=== PATIENT | male | born 1990 | race Caucasian/White ===

== ENCOUNTER → 2021-10-22 10:44 | Outpatient (BNVA) | payer OTHER, SELFPAY | PROVIDERS: PCP Physician Assistant; Visit Provider Internal Medicine Pulmonary Disease | DX: J45.40 Moderate persistent asthma, uncomplicated (principal); Z91.09 Other allergy status, other than to drugs and biological substances | CPT/HCPCS: 36415; 82306; 85025; 99202 ==

== ENCOUNTER 2021-10-22 11:13 | Outpatient (REF) | payer OTHER, SELFPAY ==
[2021-10-22 11:35] LABS: MANUAL DIFF FLAG NO
[2021-10-22 12:03] LABS: Basophils Percent Auto 0.6 % (0-2); Eosinophils Absolute Auto 0.4 X10*3/uL (0.0-0.4); Imm Gran Abs Auto 0.02 X10*3/uL (0.00-0.03); Imm Gran Pct Auto 0.3 % (0.0-0.4); Lymphocytes Absolute Auto 1.3 X10*3/uL (1.2-4.9); Lymphocytes Percent Auto 18.9 % (20-40); Mean Corpuscular Hemoglobin 29.7 pg (27.0-33.0); Mean Corpuscular Volume 87.2 fL (80.0-98.0); Mean Platelet Volume 9.9 fL (9.4-12.4); Monocytes Absolute Auto 0.4 X10*3/uL (0.1-1.2); Neutrophils Absolute Auto 4.8 x10*3/uL (2.0-8.3); Neutrophils Percent Auto 68.2 % (45-73); Platelet Count 308 X10*3/uL (160-400); Red Blood Count 5.39 X10*6/uL (4.60-5.80); Red Cell Distribution Width 11.9 % (11.0-16.0)
[2021-10-22 12:57] LABS: Vitamin D 25-OH Total 17.3 ng/mL (>30)
== END 2021-10-22 11:14 | disposition home or self-care (01) ==
LOC: HO.LAB 11:13
PROVIDERS: Nurse Practitioner Family; PCP Physician Assistant; Visit Provider Internal Medicine Pulmonary Disease
DX: J45.909 Unspecified asthma, uncomplicated (principal); Z91.09 Other allergy status, other than to drugs and biological substances
CPT/HCPCS: 36415; 82306; 82785; 85025; 86003

== ENCOUNTER 2021-11-19 09:56 | Outpatient (REF) | payer OTHER, SELFPAY ==
--- NOTE | 2021-11-19 10:54 | PFT_ITS ---
FLOWS: FEV1 88% of predicted at 3.51 L. FVC 95% of predicted at 4.58 L. FEV1 to FVC ratio of 0.77. Positive bronchodilator response. LUNG VOLUMES: Total lung capacity 102% of predicted at 6.23 L. Residual volume 162% of predicted at 2.34 L. Slow vital capacity 83% of predicted at 3.89 L. Expiratory reserve volume 46% of predicted at 0.68 L. Diffusion capacity is normal. IMPRESSION: No obstructive or restrictive ventilatory defect. Positive bronchodilator response. Increased residual volume suggests air trapping. Decreased expiratory reserve volume suggests extrathoracic restriction likely secondary to abdominal obesity. MD ELIZABETH Boswell/MODL / [id number]
== END 2021-11-19 09:57 | disposition home or self-care (01) ==
LOC: HO.RESP 09:56
PROVIDERS: PCP Physician Assistant; Visit Provider Internal Medicine Pulmonary Disease
DX: J45.40 Moderate persistent asthma, uncomplicated (principal); R06.00 Dyspnea, unspecified
CPT/HCPCS: 94060; 94727; 94729

== ENCOUNTER → 2021-12-01 09:45 | Outpatient (BNVA) | payer OTHER, SELFPAY | PROVIDERS: PCP Physician Assistant; Visit Provider Internal Medicine Pulmonary Disease | DX: J45.40 Moderate persistent asthma, uncomplicated (principal); Z91.09 Other allergy status, other than to drugs and biological substances | CPT/HCPCS: 99212 ==

== ENCOUNTER 2022-10-27 14:17 | Outpatient (REF) | payer OTHER, SELFPAY ==
[2022-10-27 14:54] LABS: MANUAL DIFF FLAG NO
[2022-10-27 15:42] LABS: Basophils Percent Auto 0.5 % (0-2); Eosinophils Absolute Auto 0.7 X10*3/uL (0.0-0.4); Eosinophils Percent Auto 9.6 % (0-4); Hematocrit 46.7 % (42.0-52.0); Imm Gran Abs Auto 0.02 X10*3/uL (0.00-0.03); Imm Gran Pct Auto 0.3 % (0.0-0.4); Lymphocytes Absolute Auto 1.1 X10*3/uL (1.2-4.9); Lymphocytes Percent Auto 14.1 % (20-40); Mean Corpuscular HGB Conc 34.3 g/dl (31.0-36.0); Mean Corpuscular Hemoglobin 30.9 pg (27.0-33.0); Mean Corpuscular Volume 90.2 fL (80.0-98.0); Mean Platelet Volume 10.2 fL (9.4-12.4); Monocytes Absolute Auto 0.5 X10*3/uL (0.1-1.2); Monocytes Percent Auto 6.4 % (2-11); Neutrophils Absolute Auto 5.3 x10*3/uL (2.0-8.3); Neutrophils Percent Auto 69.1 % (45-73); Platelet Count 264 X10*3/uL (160-400); Red Blood Count 5.18 X10*6/uL (4.60-5.80); Red Cell Distribution Width 11.9 % (11.0-16.0); White Blood Count 7.6 X10*3/uL (4.8-10.8)
== END 2022-10-27 14:18 | disposition home or self-care (01) ==
LOC: HO.LAB 14:17
PROVIDERS: PCP Physician Assistant; Visit Provider Internal Medicine Pulmonary Disease
DX: J45.40 Moderate persistent asthma, uncomplicated (principal); Z91.09 Other allergy status, other than to drugs and biological substances
CPT/HCPCS: 36415; 82785; 85025; 86003; 99212

== ENCOUNTER 2022-10-27 14:17 | Outpatient (AMB) | payer OTHER, SELFPAY ==
--- NOTE | 2022-10-27 14:19 | A.OFFVIS_ITS ---
Intake Vital Signs 10/27/22 14:20 Height 5 ft 6 in Weight 194 lb BMI 31.3 BP 118/82 Pulse 80 Pulse Oximetry (%) 96 Intake Visit Reasons: Missed appointment Allergies apple [APPLE] Allergy (Severe, Verified 10/27/22 14:19) THROAT ITCHING nut - unspecified [nut] Allergy (Severe, Verified 10/27/22 14:19) ANAPHYLAXIS Fish Containing Products Allergy (Unknown, Verified 10/27/22 14:19) itchy throat HPI Missed appointment HPI Details 32-year-old gentleman, nonsmoker, followed for underlying moderate to severe persistent asthma and environmental allergies. Symptoms for previously controlled on high-dose Advair and albuterol MDI, however recently patient started to experience more symptoms, and also nocturnal symptoms. He is inter ested in immunologic therapy at this time. He does complain of an acute exacerbation symptomatic with wheezing and mild dyspnea. [facility] Medical History SONG positive Surgical History H/O surgical removal of keloid Family History Father Alive and well Mother Asthma Diabetes Brother Asthma Social History (Updated 08/19/22 @ 13:47 by Dru Mercer PA-C) Housing: Apartment Alcohol intake: current Alcohol intake frequency: holidays/special occasions only Patient Tobacco Use Status: Never used Tobacco e-Cigarette/Vaping Use: Never Used Second Hand Smoke Exposure: No service: No Current occupational status: employed Current occupation: [employer] Cognitive needs: No Hearing needs: No Vision needs: No Review of Systems Const Denies daytime sleepiness, Denies excessive sweating, Denies fatigue, Denies fever(s), Denies lethargy, Denies malaise, Denies night sweats, Denies snoring and Denies weight loss Eyes Denies blurry vision and Denies itchy eyes ENT Denies nasal congestion, Denies post nasal drip, Denies sinus pain, Denies sinus pressure and Denies other ( Thrush) Card Denies chest pain, Denies pedal edema, Denies dyspnea, Denies orthopnea and Denies paroxysmal nocturnal dyspnea Resp Denies cough, Denies hemoptysis, Denies excessive phlegm production, Denies dyspnea, Denies snoring and Reports wheezing GI Denies abdominal pain and Denies heartburn Musc Denies myalgias, Denies arthralgias and Denies joint swelling Skin/Breast Denies rash Neuro Denies memory loss and Denies seizure-like activity Psych Denies abnormal sleep pattern, Denies anxiety and Denies memory loss Endo Denies excessive sweating, Denies fatigue and Denies heat intolerance Hardik/Lymph Denies easy bruising Aller/Immun Denies itchy eyes, Denies seasonal rhinorrhea and Reports wheezing Physical Exam Vital Signs: Last Vital Signs Pulse 80 10/27/22 14:20 BP 118/82 10/27/22 14:20 Pulse Ox 96 10/27/22 14:20 BMI result Body Mass Index 31.3 Const General: no acute distress and alert Nutritional Appearance: not obese Orientation/consciousness: Other orientation findings ( oriented) HEENT Head: Yes atraumatic Eyes General: appearance normal, both eyes and all related structures Sclerae: sclerae normal EOM: EOMs intact bilaterally Neck Neck: Yes supple Lymphatic: no lymphadenopathy noted Resp Effort & Inspection: normal respiratory effort and no use of accessory muscles Auscultation: wheezes expiratory wheezes (Diffuse bilateral) Cardio Rate: regular rate Rhythm: regular rhythm Heart sounds: no gallops, no murmurs and no rubs Skin General skin exam: other ( warm) Extrem General: No clubbing, No cyanosis and No edema Assessment & Plan Assessment & Plan (1) Asthma: Code(s): J45.909 - Unspecified asthma, uncomplicated Qualifiers: Asthma severity: moderate Asthma persistence: persistent Asthma complication type: uncomplicated Qualified Code(s): J45.40 - Moderate persistent asthma, uncomplicated Plan: Underlying asthma, now suboptimally controlled on high-dose Advair and albuterol MDI. Will repeat immunologic studies and consider starting on Dupixent. Will treat acute exacerbation with a course of prednisone. (2) Environmental allergies: Code(s): Z91.09 - Other allergy status, other than to drugs and biological substances Plan: Suboptimal control on Singulair. Expect to improve on Dupixent. Orders: Orders Rast Allergen Today J45.40 - Moderate persistent asthma, uncomplicated Complete Blood Count Auto Diff Today J45.40 - Moderate persistent asthma, uncomplicated Medications: New prednisone 40 mg (2 x 20 mg) PO DAILY 14 tabs 0RF 7 days J45.40 - Moderate persistent asthma, uncomplicated Coding Level of Care Code Est Pt Level 4 (76585) Diagnoses Asthma J45.40 Asthma severity: moderate Asthma persistence: persistent Asthma complication type: uncomplicated Environmental allergies Z91.09
[2022-10-27 14:20] VITALS: BP 118/82; PULSE 80; O2SAT 96; BMI 31.3
== END 2022-10-27 14:35 | disposition home or self-care (01) ==
PROVIDERS: PCP Physician Assistant; Visit Provider Internal Medicine Pulmonary Disease
DX: J45.40 Moderate persistent asthma, uncomplicated (principal); Z91.09 Other allergy status, other than to drugs and biological substances
CPT/HCPCS: 99214

== ENCOUNTER 2022-11-10 09:01 | Outpatient (AMB) | payer OTHER, SELFPAY ==
[2022-11-10 09:20] VITALS: BP 118/78; PULSE 83; O2SAT 98
--- NOTE | 2022-11-10 09:20 | MHC.OFFVIS ---
Intake Vital Signs 11/10/22 09:20 Weight 87.5 kg BP 118/78 Blood Pressure Location Lt brachial Position Sitting Pulse 83 Pulse Source Pulse Oximeter Pulse Oximetry (%) 98 Oxygen Delivery Method Room Air Intake Visit Reasons: Dupixent teach Allergies apple [APPLE] Allergy (Severe, Verified 11/10/22 09:20) THROAT ITCHING nut - unspecified [nut] Allergy (Severe, Verified 11/10/22 09:20) ANAPHYLAXIS Fish Containing Products Allergy (Unknown, Verified 11/10/22 09:20) itchy throat Medication List - Last Reconciled 11/10/22 by Roslyn Ku LPN albuterol sulfate 90 mcg/actuation (Ventolin HFA) 1 inh inhalation QID 30 days cholecalciferol (vitamin D3) 25 mcg PO DAILY dupilumab (Dupixent) 300 mg (2 mL) subcut Q2W 28 days fexofenadine (Estephania Allergy) 180 mg PO DAILY fluticasone propion-salmeterol 230-21 mcg/actuation (Advair HFA) 2 puffs PO BID ketoconazole 2% 1 appl topical 3XW 8 weeks miscellaneous medical supply 1 ea miscellaneous DAILY montelukast (Singulair) 10 mg PO BEDTIME 90 days nebulizers (AeroEclipse II Nebulizer) As directed prednisone 40 mg (2 x 20 mg) PO DAILY 7 days triamcinolone acetonide 0.1% 1 appl topical DAILY HPI Dupixent teach HPI Details Reece is here for a Dupixent teach with his girlfriend Jada. Reece and Luisanaselena were educated on hand washing, injection preparation, administration, and disposal.?Jada was able to return demonstrate proper technique for hand washing, injection preparation, administration and disposal of needle and states she has no questions at this time. Medication Dupixent 300mg/2mL pre-filled pen (patient?s own meds) Loading dose of 600mg given by the Jada in 2 SQ injections; injection #1 L upper arm ;? injection #2 R upper arm? Lot# [id number] expires 06/02/2024. Patient aware his next injection is in 15 days. Nurse visit only.? PFSH Medical History SONG positive Surgical History H/O surgical removal of keloid Family History Father Alive and well Mother Asthma Diabetes Brother Asthma Social History (Updated 08/19/22 @ 13:47 by Dru Mercer PA-C) Housing: Apartment Alcohol intake: current Alcohol intake frequency: holidays/special occasions only Patient Tobacco Use Status: Never used Tobacco e-Cigarette/Vaping Use: Never Used Second Hand Smoke Exposure: No service: No Current occupational status: employed Current occupation: [employer] Cognitive needs: No Hearing needs: No Vision needs: No Assessment & Plan Assessment & Plan (1) Asthma: Code(s): J45.909 - Unspecified asthma, uncomplicated Qualifiers: Asthma severity: moderate Asthma persistence: persistent Asthma complication type: uncomplicated Qualified Code(s): J45.40 - Moderate persistent asthma, uncomplicated Coding Level of Care Code Established Pt Est Pt Level 1 (52158) Patient Type Established Diagnoses Asthma J45.40 Asthma severity: moderate Asthma persistence: persistent Asthma complication type: uncomplicated Comment NURSE VISIT ONLY
== END 2022-11-10 09:48 | disposition home or self-care (01) ==
PROVIDERS: PCP Physician Assistant; Visit Provider Internal Medicine Pulmonary Disease
DX: J45.40 Moderate persistent asthma, uncomplicated (principal)

== ENCOUNTER → 2022-11-10 09:01 | Outpatient (BNVA) | payer OTHER, SELFPAY | PROVIDERS: PCP Physician Assistant; Visit Provider Internal Medicine Pulmonary Disease | DX: J45.40 Moderate persistent asthma, uncomplicated (principal) | CPT/HCPCS: 99211 ==

== ENCOUNTER 2023-01-20 08:48 | Outpatient (AMB) | payer OTHER, SELFPAY ==
[2023-01-20 09:00] VITALS: BP 107/67; PULSE 73; O2SAT 96; BMI 32.0
--- NOTE | 2023-01-20 09:00 | MHC.OFFVIS ---
Intake Vital Signs 01/20/23 09:00 Height 5 ft 6 in Weight 198 lb 6.656 oz BMI 32.0 BP 107/67 Blood Pressure Location Rt brachial Position Sitting Pulse 73 Pulse Source Doppler Pulse Oximetry (%) 96 Oxygen Delivery Method Room Air Intake Visit Reasons: Missed appointment Allergies apple [APPLE] Allergy (Severe, Verified 01/20/23 09:02) THROAT ITCHING nut - unspecified [nut] Allergy (Severe, Verified 01/20/23 09:02) ANAPHYLAXIS Fish Containing Products Allergy (Unknown, Verified 01/20/23 09:02) itchy throat HPI Missed appointment HPI Details 32-year-old gentleman, nonsmoker, followed for underlying moderate to severe persistent asthma and environmental allergies. After the last office visit patient has been started on Dupixent with significant improvement in his symptom control. He continues to use Advair and albuterol MDI. He denies recent exacerbations. [facility] Medical History SONG positive Surgical History H/O surgical removal of keloid Family History Father Alive and well Mother Asthma Diabetes Brother Asthma Social History Housing: Apartment Alcohol intake: current Alcohol intake frequency: holidays/special occasions only Patient Tobacco Use Status: Never used Tobacco e-Cigarette/Vaping Use: Never Used Second Hand Smoke Exposure: No service: No Current occupational status: employed Current occupation: [employer] Cognitive needs: No Hearing needs: No Vision needs: No Review of Systems Const Denies daytime sleepiness, Denies excessive sweating, Denies fatigue, Denies fever(s), Denies lethargy, Denies malaise, Denies night sweats, Denies snoring and Denies weight loss Eyes Denies blurry vision and Denies itchy eyes ENT Denies nasal congestion, Denies post nasal drip, Denies sinus pain, Denies sinus pressure and Denies other ( Thrush) Card Denies chest pain, Denies pedal edema, Denies dyspnea, Denies orthopnea and Denies paroxysmal nocturnal dyspnea Resp Denies cough, Denies hemoptysis, Denies excessive phlegm production, Denies dyspnea, Denies snoring and Denies wheezing GI Denies abdominal pain and Denies heartburn Musc Denies myalgias, Denies arthralgias and Denies joint swelling Skin/Breast Denies rash Neuro Denies memory loss and Denies seizure-like activity Psych Denies abnormal sleep pattern, Denies anxiety and Denies memory loss Endo Denies excessive sweating, Denies fatigue and Denies heat intolerance Hardik/Lymph Denies easy bruising Aller/Immun Denies itchy eyes, Denies seasonal rhinorrhea and Denies wheezing Physical Exam Vital Signs: Last Vital Signs Pulse 73 01/20/23 09:00 BP 107/67 01/20/23 09:00 Pulse Ox 96 01/20/23 09:00 Oxygen Delivery Method Room Air 01/20/23 09:00 BMI result Body Mass Index 32.0 Const General: no acute distress and alert Nutritional Appearance: not obese Orientation/consciousness: Other orientation findings ( oriented) HEENT Head: Yes atraumatic Eyes General: appearance normal, both eyes and all related structures Sclerae: sclerae normal EOM: EOMs intact bilaterally Neck Neck: Yes supple Lymphatic: no lymphadenopathy noted Resp Effort & Inspection: normal respiratory effort and no use of accessory muscles Auscultation: clear to auscultation bilaterally Cardio Rate: regular rate Rhythm: regular rhythm Heart sounds: no gallops, no murmurs and no rubs Skin General skin exam: other ( warm) Extrem General: No clubbing, No cyanosis and No edema Assessment & Plan Assessment & Plan (1) Asthma: Code(s): J45.909 - Unspecified asthma, uncomplicated Qualifiers: Asthma severity: moderate Asthma persistence: persistent Asthma complication type: uncomplicated Qualified Code(s): J45.40 - Moderate persistent asthma, uncomplicated Plan: Well controlled on current regimen of Dupixent, Advair, and albuterol MDI. Continue current regimen. (2) Environmental allergies: Code(s): Z91.09 - Other allergy status, other than to drugs and biological substances Plan: Well controlled on current regimen of Dupixent and montelukast. Continue current regimen. Coding Level of Care Code Est Pt Level 4 (04800) Diagnoses Moderate persistent asthma without complication J45.40 Asthma severity: moderate Asthma persistence: persistent Asthma complication type: uncomplicated Environmental allergies Z91.09
== END 2023-01-20 09:20 | disposition home or self-care (01) ==
PROVIDERS: PCP Physician Assistant; Visit Provider Internal Medicine Pulmonary Disease
DX: J45.40 Moderate persistent asthma, uncomplicated (principal); Z91.09 Other allergy status, other than to drugs and biological substances
CPT/HCPCS: 99214

== ENCOUNTER → 2023-01-20 08:48 | Outpatient (BNVA) | payer OTHER, SELFPAY | PROVIDERS: PCP Physician Assistant; Visit Provider Internal Medicine Pulmonary Disease | DX: J45.40 Moderate persistent asthma, uncomplicated (principal); Z91.09 Other allergy status, other than to drugs and biological substances | CPT/HCPCS: 99212 ==

== ENCOUNTER 2023-04-06 13:38 | Emergency (ER) | payer OTHER, SELFPAY ==
--- NOTE | ~2023-04-06 | XR_ITS ---
EXAMINATION: XR CHEST CLINICAL INFORMATION: SOB COMPARISON: None available. TECHNIQUE: 2 views of the chest were obtained. FINDINGS: No significant abnormality is noted involving the heart, lungs, mediastinum, bony thorax or soft tissues. XR/XR chest 2V IMPRESSION: Unremarkable chest examination.
[2023-04-06 14:00] VITALS: BP 127/93; PULSE 77; RESP 18; TEMP 36.9; O2SAT 97; BMI 30.8
--- NOTE | 2023-04-06 14:01 | ED_ITS ---
HPI - Asthma General Chief Complaint: Upper Respiratory Symptoms Stated Complaint: ASTHMA Time Seen by Provider: 04/06/23 19:45 Source: patient and RN notes reviewed Mode of arrival: ambulatory Limitations: no limitations History of Present Illness HPI Narrative: This is a 77-phkb-dga-male, with a hx of asthma, presenting to the ER with a complaint of worsening asthma and cough since yesterday. patient reports that over the last week he has felt more tired, with body aches. He attributed this to his work. He denies any fevers, chills. he denies any chest pain, sore throat, ear pain, congestion, abdominal pain, nausea, vomiting or diarrhea. No sick contacts. He has been using his albuterol inhaler with minimal relief. No other complaints or concerns at this time. MD complaint: shortness of breath and wheezing Onset (ago): day(s) Severity: moderate Context: none known Associated symptoms: dry cough Asthma History: childhood onset Related Data Home Medications Medication Instructions Recorded Confirmed fexofenadine 180 mg tablet 180 mg PO DAILY 09/18/21 11/10/22 (Estephania Allergy) Previous Rx's Medication Instructions Recorded miscellaneous medical supply 1 ea miscellaneous DAILY #1 ea 09/18/21 cholecalciferol (vitamin D3) 25 25 mcg PO DAILY #90 tabs 10/23/21 mcg (1,000 unit) tablet nebulizers (AeroEclipse II #1 ea 08/19/22 Nebulizer) triamcinolone acetonide 0.1 % 1 appl topical DAILY #454 grams 10/26/22 topical ointment prednisone 20 mg tablet 40 mg (2 x 20 mg) PO DAILY 7 days 10/27/22 #14 tabs ketoconazole 2 % shampoo 1 appl topical 3XW 8 weeks #120 mL 12/19/22 dupilumab 300 mg/2 mL subcutaneous 300 mg (2 mL) subcut Q2W 28 days 02/02/23 pen injector (Dupixent) #4 mL albuterol sulfate 90 mcg/actuation 1 inh inhalation QID 30 days #8.5 02/18/23 aerosol inhaler (Ventolin HFA) grams montelukast 10 mg tablet 10 mg PO BEDTIME 90 days #90 tabs 02/18/23 (Singulair) fluticasone propionate 230 2 puff PO BID #12 ea 03/31/23 mcg-salmeterol 21 mcg/actuation HFA inhaler (Advair HFA) prednisone 10 mg tablet 10 mg PO DIRECTED 6 days #12 04/06/23 tabs Allergies Allergy/AdvReac Type Severity Reaction Status Date / Time apple [APPLE] Allergy Severe THROAT Verified 01/20/23 09:02 ITCHING nut - unspecified [nut] Allergy Severe ANAPHYLAXIS Verified 01/20/23 09:02 Fish Containing Products Allergy Unknown itchy Verified 01/20/23 09:02 throat Review of Systems Review of Systems: Yes all other systems are reviewed and are negative Constitutional: Constitutional: Reports as per [facility] Past Medical History Attestation statement: The following information was validated with the patient. Onset Date is defined in the Problem List Problems that require an onset date and time if occurred within 24 hrs of arrival to the ED Aortic Dissection and Rupture; Neurologic impairment; Cardiopulmonary Arrest; Endotracheal Intubation; Insertion or Replacement of Mechanical Circulatory Assist Device Medical History SONG positive Surgical History H/O surgical removal of keloid Family History Family History Father Alive and well Mother Asthma Diabetes Brother Asthma Social History Social History Housing: Apartment Alcohol intake: current Alcohol intake frequency: holidays/special occasions only Patient Tobacco Use Status: Never used Tobacco e-Cigarette/Vaping Use: Never Used Second Hand Smoke Exposure: No Advance Directives: No Advance Directives Information Provided: No service: No Current occupational status: employed Current occupation: [employer] Cognitive needs: No Hearing needs: No Vision needs: No Physical Exam Vital Signs: Vital Signs: Last Vital Signs Temp 98.5 F 04/06/23 14:00 Pulse 77 04/06/23 19:44 Resp 18 04/06/23 19:44 BP 127/93 H 04/06/23 14:00 Pulse Ox 97 04/06/23 14:00 O2 Del Method Room Air 04/06/23 14:00 BMI result Body Mass Index 30.8 Const: General: cooperative, comfortable and no acute distress [place] ation/consciousness: patient oriented x3 Limitations: no limitations HEENT: Head: Yes normal to inspection, Yes normocephalic and Yes atraumatic Ears: hearing grossly normal bilaterally and TM's normal bilaterally General nose exam: Normal external nose present Face and sinus: Yes normal facial exam Mouth: Normal oral and palatal mucosa present, oropharynx normal and moist mucous membranes Throat: Yes posterior oropharynx normal, Yes tonsils normal and Yes uvula midline Eyes: General: appearance normal, both eyes and all related structures Eyelids: Yes eyelids normal Conjunctivae: conjunctivae normal Sclerae: sclerae normal Pupils: Equal, round and reactive pupils present EOM: EOMs intact bilaterally Neck: Neck: Yes normal visual inspection, Yes full ROM and Yes no lymphadenopathy Lymphatic: no lymphadenopathy noted Chest: Chest palpation & inspection: normal inspection of the chest Resp: Other: Coarse inspiratory and expiratory wheezes noted throughout all lung miller. Effort & Inspection: normal respiratory effort and able to speak in complete sentences Cardio: Rate: regular rate Rhythm: regular rhythm Heart sounds: S1 normal heart sound present and S2 normal heart sound present GI: Inspection: Yes normal to inspection Skin: General skin exam: no rashes or lesions noted Trauma: no lacerations or abrasions Wounds: no wounds Neuro: General: patient oriented x3 and moves all extremities Cranial nerves: Yes Equal, round and reactive pupils present Extrem: General: Yes normal to inspection Right upper extremity: normal to inspection Left upper extremity: normal to inspection Right lower extremity: normal to inspection Left lower extremity: normal to inspection Course Reevaluation(s) Reevaluation #1: patient tested positive for COVID, chest x-ray negative. Patient medicated with prednisone 50 mg by mouth, and will be discharged on course of steroids for the next 4 days. E.d. bronch protocol initiated given inspiratory and expiratory wheezes throughout all lung miller. Oxygen saturation normal, patient remains to be afebrile Time: 19:36 Reevaluation #2: patient improved after receiving updraft and prednisone. Given return precautions. Patient understands and agrees with plan. Patient stable for discharge. Time: 20:16 Medications Administered Discontinued Medications Generic Name Dose Route Start Last Admin Trade Name Freq PRN Reason Stop Dose Admin Albuterol Sulfate 8 puff 04/06/23 19:39 04/06/23 19:42 Albuterol Sulfate 90 Mcg 8 Gm Inhaler INHALE 04/06/23 19:40 8 puff ONCE ONE Administration Prednisone 50 mg 04/06/23 19:28 04/06/23 20:14 Prednisone 10 Mg Tablet PO 04/06/23 19:29 50 mg ONCE ONE Administration Medical Decision Making Medical Decision Making [facility] Narrative: This is a 40-qbze-roq-male, with a hx of asthma, presenting to the ER with a complaint of worsening asthma and cough since yesterday. Coarse inspiratory and expiratory wheezes noted throughout all lung miller. Oxygen saturation 97% on room air. He is in no acute respiratory distress. Likely would benefit from updrafts plus or minus steroids. Differential Diagnosis Differential Diagnoses: The differential diagnosis associated with the presenta tion includes Admission/Observation Consideration of admission/observation: Escalation of care including admission/observation considered Lab Data [facility] Lab Attestation statement: I reviewed the patient's lab results. Labs: Lab Results 04/06/23 Range/Units 17:38 Influenza Type A (PCR) NEGATIVE (Negative) Influenza Type B (PCR) NEGATIVE (Negative) RSV RNA Qual (PCR) NEGATIVE (Negative) SARS-CoV-2 RNA (RT-PCR) POSITIVE A (Negative) Radiology Impression Discussion of test interpretation with radiology: I have reviewed the radiologist's reading. External Record Review External record reviewed: Inpatient record, Office record, Outpatient record, Prior outpatient labs, Prior outpatient radiology, Primary care record and Outside ED record Discharge Plan Discharge Clinical Impression: COVID-19 Patient Disposition: Home, Self-Care Instructions: COVID-19 (Coronavirus Disease 2019) (ED) Additional Instructions: You tested positive for COVID-19 today. Your chest x-ray does not show pneumonia. Continue using her at home inhaler as prescribed. Take Tylenol and ibuprofen as directed. Drink plenty of fluids get plenty of rest COVID-19 stands for coronavirus disease 2019. It is caused by a virus called SARS-CoV-2. The virus first appeared in late 2019 and quickly spread around the world. Many people only have mild cold symptoms. Some people have digestive problems, like nausea or diarrhea. There have also been some reports of rashes or other skin symptoms. For most people, symptoms get better within a few days to weeks.? Some people with COVID-19 continue to have some symptoms for weeks or months.? Drink plenty of fluids and get plenty of rest. Take Tylenol and Motrin as needed for symptoms. If any new or worsening symptoms occur including but not limited to chest pain or shortness breath, please return for re-evaluation. What should I do if I have symptoms or test positive?If you have a fever, cough, cold symptoms, or other symptoms of COVID-19, get tested. You can use the flowchart to figure out when to test and what to do based on the results If you?test positive: ? Self-isolate for at least 5 days, even if you feel well. Self-isolation means staying apart from other people, even the people you live with. The 5 days should start the day?after?you first noticed symptoms or got a positive test result. If you have a weak immune system or if you still have a fever, you might need to self-isolate for longer than 5 days. ?After self-isolating for 5 days, wear a mask around all other people for at least 5 more days. Some people use antigen tests to decide how long to keep wearing the mask. If you do this, you can stop wearing a mask once you test negative on 2 antigen tests done at least 2 days apart. ?If your symptoms are severe, or if you are at risk for severe illness,?call ?your doctor or nurse. They can tell you if you need to be seen. Depending on your situation, they might suggest treatment. Prescriptions: No Action cholecalciferol (vitamin D3) 25 mcg (1,000 unit) tablet 25 mcg PO DAILY Qty: 90 0RF triamcinolone acetonide 0.1 % ointment 1 appl topical DAILY Qty: 454 2RF ketoconazole 2 % shampoo 1 appl topical 3XW 56 Days Qty: 120 1RF Dupixent Pen 300 mg/2 mL pen injector 300 mg subcut Q2W 28 Days Qty: 4 12RF Rx Instructions: Initial dose 600 mg, then 300 mg subcutaneously q.2 weeks. montelukast [Singulair] 10 mg tablet 10 mg PO BEDTIME 90 Days Qty: 90 1RF albuterol sulfate [Ventolin HFA] 90 mcg/actuation HFA aerosol inhaler 1 inh inhalation QID 30 Days Qty: 8.5 3RF Advair HFA 230-21 mcg/actuation HFA aerosol inhaler 2 puff PO BID Qty: 12 0RF prednisone 10 mg tablet 10 mg PO DIRECTED 6 Days Qty: 12 0RF Rx Instructions: Take 3 tablets x2 days, 2 tablets x2 days, 1 tablet x2 days fexofenadine [Estephania Allergy] 180 mg tablet 180 mg PO DAILY miscellaneous medical supply Misc 1 ea miscellaneous DAILY Qty: 1 0RF Rx Instructions: nebulizer machine with tubing (DME) nebulizers [AeroEclipse II Nebulizer] Misc See Rx Instructions .Route Qty: 1 0RF Rx Instructions: As directed prednisone 20 mg tablet 40 mg PO DAILY 7 Days Qty: 14 0RF Stand Alone Forms: Work/School Release
[2023-04-06 18:25] LABS: Influenza A PCR NEGATIVE (Negative); Influenza B PCR NEGATIVE (Negative); Resp Syncy Virus RNA Qual PCR NEGATIVE (Negative); SARS COV2 PCR INHOUSE POSITIVE (Negative)
[2023-04-06] MEDS: Albuterol Sulfate 90 MCG 8 GM INHALER 8 PUFF INHALE (19:42)
[2023-04-06 19:44] VITALS: PULSE 77; RESP 18; O2SAT 97
[2023-04-06] MEDS: predniSONE 10 MG TABLET 50 MG PO (20:14)
== END 2023-04-06 20:20 | disposition home or self-care (01) ==
PROVIDERS: Physician Assistant Medical; Emergency Provider Emergency Medicine; PCP Physician Assistant
DX: U07.1 COVID-19 (principal); J45.909 Unspecified asthma, uncomplicated; Z79.899 Other long term (current) drug therapy
CPT/HCPCS: 0241U; 71046; 94640; 94664; 99283; 99284

== ENCOUNTER 2023-07-15 09:00 | Outpatient (AMB) | payer OTHER, SELFPAY ==
--- NOTE | 2023-07-15 09:04 | MHC.OFFVIS ---
Intake Vital Signs 07/15/23 09:05 Height 5 ft 6 in Weight 195 lb 1.745 oz BMI 31.5 BP 112/67 Blood Pressure Location Rt brachial Position Sitting Pulse 85 Pulse Source Doppler Pulse Oximetry (%) 95 Oxygen Delivery Method Room Air Intake Visit Reasons: Asthma Allergies apple [APPLE] Allergy (Severe, Verified 01/20/23 09:02) THROAT ITCHING nut - unspecified [nut] Allergy (Severe, Verified 01/20/23 09:02) ANAPHYLAXIS Fish Containing Products Allergy (Unknown, Verified 01/20/23 09:02) itchy throat HPI Asthma HPI Details 33-year-old gentleman, nonsmoker, followed for underlying moderate to severe persistent asthma and environmental allergies. He has been on Dupixent over 3 months, but his symptoms as still suboptimally controlled. Now he complains of another acute exacerbation symptomatic with wheezing and chest tightness. He continues to use Advair and albuterol MDI. [facility] Medical History SONG positive Surgical History H/O surgical removal of keloid Family History Father Alive and well Mother Asthma Diabetes Brother Asthma Social History Housing: Apartment Alcohol intake: current Alcohol intake frequency: holidays/special occasions only Patient Tobacco Use Status: Never used Tobacco e-Cigarette/Vaping Use: Never Used Second Hand Smoke Exposure: No service: No Current occupational status: employed Current occupation: [employer] Cognitive needs: No Hearing needs: No Vision needs: No Review of Systems Const Denies daytime sleepiness, Denies excessive sweating, Denies fatigue, Denies fever(s), Denies lethargy, Denies malaise, Denies night sweats, Denies snoring and Denies weight loss Eyes Denies blurry vision and Denies itchy eyes ENT Denies nasal congestion, Denies post nasal drip, Denies sinus pain, Denies sinus pressure and Denies other ( Thrush) Card Denies chest pain, Denies pedal edema, Denies dyspnea, Denies orthopnea and Denies paroxysmal nocturnal dyspnea Resp Denies cough, Denies hemoptysis, Denies excessive phlegm production, Denies dyspnea, Denies snoring and Denies wheezing GI Denies abdominal pain and Denies heartburn Musc Denies myalgias, Denies arthralgias and Denies joint swelling Skin/Breast Denies rash Neuro Denies memory loss and Denies seizure-like activity Psych Denies abnormal sleep pattern, Denies anxiety and Denies memory loss Endo Denies excessive sweating, Denies fatigue and Denies heat intolerance Hardik/Lymph Denies easy bruising Aller/Immun Denies itchy eyes, Denies seasonal rhinorrhea and Denies wheezing Physical Exam Vital Signs: Last Vital Signs Pulse 85 07/15/23 09:05 BP 112/67 07/15/23 09:05 Pulse Ox 95 07/15/23 09:05 Oxygen Delivery Method Room Air 07/15/23 09:05 BMI result Body Mass Index 31.5 Const General: no acute distress and alert Nutritional Appearance: not obese Orientation/consciousness: Other orientation findings ( oriented) HEENT Head: Yes atraumatic Eyes General: appearance normal, both eyes and all related structures Sclerae: sclerae normal EOM: EOMs intact bilaterally Neck Neck: Yes supple Lymphatic: no lymphadenopathy noted Resp Effort & Inspection: normal respiratory effort and no use of accessory muscles Auscultation: clear to auscultation bilaterally Cardio Rate: regular rate Rhythm: regular rhythm Heart sounds: no gallops, no murmurs and no rubs Skin General skin exam: other ( warm) Extrem General: No clubbing, No cyanosis and No edema Assessment & Plan Assessment & Plan (1) Asthma: Code(s): J45.909 - Unspecified asthma, uncomplicated Qualifiers: Asthma severity: moderate Asthma persistence: persistent Asthma complication type: uncomplicated Qualified Code(s): J45.40 - Moderate persistent asthma, uncomplicated Plan: Worsening control on Dupixent, Advair, and albuterol MDI. Will request changing Dupixent to Nucala. Continue Advair and albuterol MDI. (2) Environmental allergies: Code(s): Z91.09 - Other allergy status, other than to drugs and biological substances Plan: Worsening control on Dupixent, will change to Nucala. Continue Singulair. Coding Level of Care Code Est Pt Level 4 (05947) Diagnoses Moderate persistent asthma without complication J45.40 Asthma severity: moderate Asthma persistence: persistent Asthma complication type: uncomplicated Environmental allergies Z91.09
[2023-07-15 09:05] VITALS: BP 112/67; PULSE 85; O2SAT 95; BMI 31.5
== END 2023-07-15 09:20 | disposition home or self-care (01) ==
PROVIDERS: PCP Physician Assistant; Visit Provider Internal Medicine Pulmonary Disease
DX: J45.40 Moderate persistent asthma, uncomplicated (principal); Z91.09 Other allergy status, other than to drugs and biological substances
CPT/HCPCS: 99214

== ENCOUNTER → 2023-07-15 09:00 | Outpatient (BNVA) | payer OTHER, SELFPAY | PROVIDERS: PCP Physician Assistant; Visit Provider Internal Medicine Pulmonary Disease | DX: J45.40 Moderate persistent asthma, uncomplicated (principal); Z91.09 Other allergy status, other than to drugs and biological substances | CPT/HCPCS: 99212 ==

== ENCOUNTER 2023-09-16 08:58 | Outpatient (AMB) | payer OTHER, SELFPAY ==
[2023-09-16 09:06] VITALS: BP 108/62; PULSE 85; O2SAT 95; BMI 32.2
--- NOTE | 2023-09-16 09:06 | MHC.OFFVIS ---
Vital Signs 09/16/23 09:06 Height 5 ft 6 in Weight 199 lb 8.293 oz BMI 32.2 BP 108/62 Blood Pressure Location Rt brachial Position Sitting Pulse 85 Pulse Source Doppler Pulse Oximetry (%) 95 Oxygen Delivery Method Room Air Intake Visit Reasons: Asthma Allergies apple [APPLE] Allergy (Severe, Verified 01/20/23 09:02) THROAT ITCHING nut - unspecified [nut] Allergy (Severe, Verified 01/20/23 09:02) ANAPHYLAXIS Fish Containing Products Allergy (Unknown, Verified 01/20/23 09:02) itchy throat HPI HPI Asthma: Details: 33-year-old gentleman, nonsmoker, followed for underlying moderate to severe persistent asthma and environmental allergies. after the last office visit he was switched from Dupixent to Nucala, however he has not started that yet and now he presents complaining of an acute exacerbation symptomatic with significant wheezing and dyspnea. PFSH Medical History SONG positive Surgical History H/O surgical removal of keloid Family History Father Alive and well Mother Asthma Diabetes Brother Asthma Social History Housing: Apartment Alcohol intake: current Alcohol intake frequency: holidays/special occasions only Patient Tobacco Use Status: Never used Tobacco e-Cigarette/Vaping Use: Never Used Second Hand Smoke Exposure: No service: No Current occupational status: employed Current occupation: [employer] Cognitive needs: No Hearing needs: No Vision needs: No Review of Systems Const Denies daytime sleepiness, Denies excessive sweating, Denies fatigue, Denies fever(s), Denies lethargy, Denies malaise, Denies night sweats, Denies snoring and Denies weight loss Eyes Denies blurry vision and Denies itchy eyes ENT Denies nasal congestion, Denies post nasal drip, Denies sinus pain, Denies sinus pressure and Denies other ( Thrush) Card Denies chest pain, Denies pedal edema, Denies dyspnea, Reports dyspnea on exertion, Denies orthopnea and Denies paroxysmal nocturnal dyspnea Resp Reports cough, Denies hemoptysis, Reports excessive phlegm production, Denies dyspnea, Reports dyspnea on exertion, Denies snoring and Reports wheezing GI Denies abdominal pain and Denies heartburn Musc Denies myalgias, Denies arthralgias and Denies joint swelling Skin/Breast Denies rash Neuro Denies memory loss and Denies seizure-like activity Psych Denies abnormal sleep pattern, Denies anxiety and Denies memory loss Endo Denies excessive sweating, Denies fatigue and Denies heat intolerance Hardik/Lymph Denies easy bruising Aller/Immun Denies itchy eyes, Denies seasonal rhinorrhea and Reports wheezing Physical Exam Vital Signs: Last Vital Signs Pulse 85 09/16/23 09:06 BP 108/62 09/16/23 09:06 Pulse Ox 95 09/16/23 09:06 Oxygen Delivery Method Room Air 09/16/23 09:06 BMI result Body Mass Index 32.2 Const General: no acute distress and alert Nutritional Appearance: not obese Orientation/consciousness: Other orientation findings ( oriented) HEENT Head: Yes atraumatic Eyes General: appearance normal, both eyes and all related structures Sclerae: sclerae normal EOM: EOMs intact bilaterally Neck Neck: Yes supple Lymphatic: no lymphadenopathy noted Resp Effort & Inspection: normal respiratory effort and no use of accessory muscles Auscultation: wheezes expiratory wheezes ( Bilateral, improved after DuoNeb) Cardio Rate: regular rate Rhythm: regular rhythm Heart sounds: no gallops, no murmurs and no rubs Skin General skin exam: other ( warm) Extrem General: No clubbing, No cyanosis and No edema Office Procedures Nebulizer Treatment Nebulizer Treatment 65520-[id number]/MDI RX initial, or Nebulizer Subsequent Treatment Office Meds ipratropium 0.5 mg-albuterol 3 mg (2.5 mg base)/3 mL nebulization soln Performing Provider: Deven Card MD Performing Location: [facility] Administered by: Korina Corley LPN on 09/16/23 09:28 Dose Route Admin Location Dispensed Lot Number Expiration Date NDC Inbound Sales Manager 3 mL inhalation 3 mL [id number] 08/02/25 32864-952-49 AHP Assessment & Plan Assessment & Plan (1) Severe persistent asthma: Code(s): J45.50 - Severe persistent asthma, uncomplicated Category: Medical Plan: suboptimal control, expect to improve on Nucala. Will treat acute exacerbation with a course of prednisone and azithromycin. Continue baseline Advair and albuterol MDI. (2) Environmental allergies: Code(s): Z91.09 - Other allergy status, other than to drugs and biological substances Category: Medical Plan: Expect to improve on Nucala. Orders: Orders AMB Nebulizer Treatment Today J45.50 - Severe persistent asthma, uncomplicated Medications: New prednisone take 4 pills daily for 5 days, then go down by 1 pill every 5 days. 10 mg PO DIRECTED 50 tabs 0RF azithromycin For 250 mg dose pack: take 500 mg today (day 1), then 250 mg for 4 days (days 2-5) PO 6 tabs 0RF Discontinued prednisone Discontinued Reason: Doctor's Order 40 mg (2 x 20 mg) PO DAILY 10 tabs 0RF Coding Level of Care Code Est Pt Level 4 (97941) Diagnoses Severe persistent asthma J45.50 Environmental allergies Z91.09 CPT Codes Nebulizer Treatment - Nebulizer Treatment, initial or subsequent: [id number]/MDI RX initial, or Nebulizer Subsequent Treatment ([id number])
== END 2023-09-16 09:39 | disposition home or self-care (01) ==
PROVIDERS: PCP Physician Assistant; Visit Provider Internal Medicine Pulmonary Disease
DX: J45.50 Severe persistent asthma, uncomplicated (principal); Z91.09 Other allergy status, other than to drugs and biological substances
CPT/HCPCS: 99214

== ENCOUNTER → 2023-09-16 08:58 | Outpatient (BNVA) | payer OTHER, SELFPAY | PROVIDERS: PCP Physician Assistant; Visit Provider Internal Medicine Pulmonary Disease | DX: J45.50 Severe persistent asthma, uncomplicated (principal); Z91.09 Other allergy status, other than to drugs and biological substances | CPT/HCPCS: 94640; 99212 ==

== ENCOUNTER 2023-09-20 11:51 | Outpatient (RCR) | payer OTHER, SELFPAY ==
[2023-09-20 11:54] VITALS: BP 132/69; PULSE 76; RESP 18; TEMP 37; O2SAT 97; BMI 32.1
[2023-09-20] MEDS: Mepolizumab 100 MG/ML AUTO.INJCT SUBCUT (12:00)
== END 2023-09-30 12:22 | disposition home or self-care (01) ==
LOC: HO.INF 11:51
PROVIDERS: Visit Provider Internal Medicine Pulmonary Disease
DX: J45.50 Severe persistent asthma, uncomplicated (principal)
CPT/HCPCS: 96372; J2182

== ENCOUNTER 2023-09-29 14:23 | Outpatient (AMB) | payer OTHER, SELFPAY ==
[2023-09-29 14:28] VITALS: BP 111/62; PULSE 90; O2SAT 96; BMI 32.6
--- NOTE | 2023-09-29 14:28 | A.OFFVIS_ITS ---
Vital Signs 09/29/23 14:28 Height 5 ft 6 in Weight 201 lb 11.567 oz BMI 32.6 BP 111/62 Blood Pressure Location Rt brachial Position Sitting Pulse 90 Pulse Source Doppler Pulse Oximetry (%) 96 Oxygen Delivery Method Room Air Intake Visit Reasons: asthma exacerbation/? nucala reaction Allergies apple [APPLE] Allergy (Severe, Verified 01/20/23 09:02) THROAT ITCHING nut - unspecified [nut] Allergy (Severe, Verified 01/20/23 09:02) ANAPHYLAXIS Fish Containing Products Allergy (Unknown, Verified 01/20/23 09:02) itchy throat HPI HPI asthma exacerbation/? nucala reaction: Details: 33-year-old gentleman, nonsmoker, followed for underlying moderate to severe persistent asthma and environmental allergies. after the last office visit he was switched from Dupixent to Nucala, and had 1st injection 3 days prior after which he developed upper body rash and worsening of his asthma symptoms. PFSH Medical History SONG positive Surgical History H/O surgical removal of keloid Family History Father Alive and well Mother Asthma Diabetes Brother Asthma Social History Housing: Apartment Alcohol intake: current Alcohol intake frequency: holidays/special occasions only Patient Tobacco Use Status: Never used Tobacco e-Cigarette/Vaping Use: Never Used Second Hand Smoke Exposure: No service: No Current occupational status: employed Current occupation: [employer] Cognitive needs: No Hearing needs: No Vision needs: No Review of Systems Const Denies daytime sleepiness, Denies excessive sweating, Denies fatigue, Denies fever(s), Denies lethargy, Denies malaise, Denies night sweats, Denies snoring and Denies weight loss Eyes Denies blurry vision and Denies itchy eyes ENT Denies nasal congestion, Denies post nasal drip, Denies sinus pain, Denies sinus pressure and Denies other ( Thrush) Card Denies chest pain, Denies pedal edema, Denies dyspnea, Denies orthopnea and Denies paroxysmal nocturnal dyspnea Resp Denies cough, Denies hemoptysis, Denies excessive phlegm production, Denies dyspnea, Denies snoring and Denies wheezing GI Denies abdominal pain and Denies heartburn Musc Denies myalgias, Denies arthralgias and Denies joint swelling Skin/Breast Denies rash Neuro Denies memory loss and Denies seizure-like activity Psych Denies abnormal sleep pattern, Denies anxiety and Denies memory loss Endo Denies excessive sweating, Denies fatigue and Denies heat intolerance Hardik/Lymph Denies easy bruising Aller/Immun Denies itchy eyes, Denies seasonal rhinorrhea and Denies wheezing Physical Exam Vital Signs: Last Vital Signs Pulse 90 09/29/23 14:28 BP 111/62 09/29/23 14:28 Pulse Ox 96 09/29/23 14:28 Oxygen Delivery Method Room Air 09/29/23 14:28 BMI result Body Mass Index 32.6 Const General: no acute distress and alert Nutritional Appearance: not obese Orientation/consciousness: Other orientation findings ( oriented) HEENT Head: Yes atraumatic Eyes General: appearance normal, both eyes and all related structures Sclerae: sclerae normal EOM: EOMs intact bilaterally Neck Neck: Yes supple Lymphatic: no lymphadenopathy noted Resp Effort & Inspection: normal respiratory effort and no use of accessory muscles Auscultation: clear to auscultation bilaterally Cardio Rate: regular rate Rhythm: regular rhythm Heart sounds: no gallops, no murmurs and no rubs Skin General skin exam: other ( warm) Extrem General: No clubbing, No cyanosis and No edema Assessment & Plan Assessment & Plan (1) Asthma: Code(s): J45.909 - Unspecified asthma, uncomplicated Category: Medical Qualifiers: Asthma severity: moderate Asthma persistence: persistent Asthma complication type: uncomplicated Qualified Code(s): J45.40 - Moderate persistent asthma, uncomplicated Plan: Patient had developed an allergic reaction to Nucala, will change to Tezspire. Continue underlying Advair, duo nebs, and albuterol MDI. (2) Environmental allergies: Code(s): Z91.09 - Other allergy status, other than to drugs and biological substances Category: Medical Plan: Expect to improve after switching to Tezspire. Medications: New prednisone 40 mg (2 x 20 mg) PO DAILY 10 tabs 0RF ipratropium-albuterol 0.5 mg-3 mg(2.5 mg base)/3 mL 3 mL inhalation Q4-6H PRN 270 mL 3RF wheezing Coding Level of Care Code Est Pt Level 4 (97595) Diagnoses Moderate persistent asthma without complication J45.40 Asthma severity: moderate Asthma persistence: persistent Asthma complication type: uncomplicated Environmental allergies Z91.09
== END 2023-09-29 14:41 | disposition home or self-care (01) ==
PROVIDERS: PCP Physician Assistant; Visit Provider Internal Medicine Pulmonary Disease
DX: J45.40 Moderate persistent asthma, uncomplicated (principal); Z91.09 Other allergy status, other than to drugs and biological substances
CPT/HCPCS: 99214

== ENCOUNTER → 2023-09-29 14:23 | Outpatient (BNVA) | payer OTHER, SELFPAY | PROVIDERS: PCP Physician Assistant; Visit Provider Internal Medicine Pulmonary Disease | DX: J45.40 Moderate persistent asthma, uncomplicated (principal); Z91.09 Other allergy status, other than to drugs and biological substances | CPT/HCPCS: 99212 ==

== ENCOUNTER 2023-12-17 08:00 | Outpatient (RCR) | payer OTHER, SELFPAY ==
[2023-10-14 12:26] VITALS: BMI 32.1
[2023-10-14 12:27] VITALS: BP 118/79; PULSE 72; RESP 16; TEMP 36.5; O2SAT 92
[2023-11-19 07:59] VITALS: BP 137/72; PULSE 68; RESP 16; TEMP 36.6; O2SAT 95
[2023-12-17 08:02] VITALS: BP 138/68; PULSE 80; RESP 18; TEMP 36.3; O2SAT 97
== END 2023-12-22 11:10 | disposition home or self-care (01) ==
LOC: HO.INF 08:00
PROVIDERS: Visit Provider Internal Medicine Pulmonary Disease
DX: J45.50 Severe persistent asthma, uncomplicated (principal)
CPT/HCPCS: 96372; J2356

== ENCOUNTER 2023-12-22 10:09 | Outpatient (AMB) | payer OTHER, SELFPAY ==
[2023-12-22 10:12] VITALS: BP 118/72; PULSE 83; O2SAT 98; BMI 32.2
--- NOTE | 2023-12-22 10:12 | MHC.OFFVIS ---
Vital Signs 12/22/23 10:12 Height 5 ft 6 in Weight 199 lb 8.293 oz BMI 32.2 BP 118/72 Blood Pressure Location Rt brachial Position Sitting Pulse 83 Pulse Source Doppler Pulse Oximetry (%) 98 Oxygen Delivery Method Room Air Intake Visit Reasons: Asthma Allergies apple [APPLE] Allergy (Severe, Verified 01/20/23 09:02) THROAT ITCHING nut - unspecified [nut] Allergy (Severe, Verified 01/20/23 09:02) ANAPHYLAXIS Fish Containing Products Allergy (Unknown, Verified 01/20/23 09:02) itchy throat HPI HPI Asthma: Details: 33-year-old gentleman, nonsmoker, followed for underlying moderate to severe persistent asthma and environmental allergies. After the last office visit he was switched from Tezspire, back to Dupixent and reports improvement in his eczema, though still has significant wheezing. PFSH Medical History SONG positive Surgical History H/O surgical removal of keloid Family History Father Alive and well Mother Asthma Diabetes Brother Asthma Social History Housing: Apartment Alcohol intake: current Alcohol intake frequency: holidays/special occasions only Patient Tobacco Use Status: Never used Tobacco e-Cigarette/Vaping Use: Never Used Second Hand Smoke Exposure: No service: No Current occupational status: employed Current occupation: [employer] Cognitive needs: No Hearing needs: No Vision needs: No Review of Systems Const Denies daytime sleepiness, Denies excessive sweating, Denies fatigue, Denies fever(s), Denies lethargy, Denies malaise, Denies night sweats, Denies snoring and Denies weight loss Eyes Denies blurry vision and Denies itchy eyes ENT Denies nasal congestion, Denies post nasal drip, Denies sinus pain, Denies sinus pressure and Denies other ( Thrush) Card Denies chest pain, Denies pedal edema, Denies dyspnea, Denies orthopnea and Denies paroxysmal nocturnal dyspnea Resp Denies cough, Denies hemoptysis, Denies excessive phlegm production, Denies dyspnea, Denies snoring and Reports wheezing GI Denies abdominal pain and Denies heartburn Musc Denies myalgias, Denies arthralgias and Denies joint swelling Skin/Breast Denies rash Neuro Denies memory loss and Denies seizure-like activity Psych Denies abnormal sleep pattern, Denies anxiety and Denies memory loss Endo Denies excessive sweating, Denies fatigue and Denies heat intolerance Hardik/Lymph Denies easy bruising Aller/Immun Denies itchy eyes, Denies seasonal rhinorrhea and Reports wheezing Physical Exam Vital Signs: Last Vital Signs Pulse 83 12/22/23 10:12 BP 118/72 12/22/23 10:12 Pulse Ox 98 12/22/23 10:12 Oxygen Delivery Method Room Air 12/22/23 10:12 BMI result Body Mass Index 32.2 Const General: no acute distress and alert Nutritional Appearance: not obese Orientation/consciousness: Other orientation findings ( oriented) HEENT Head: Yes atraumatic Eyes General: appearance normal, both eyes and all related structures Sclerae: sclerae normal EOM: EOMs intact bilaterally Neck Neck: Yes supple Lymphatic: no lymphadenopathy noted Resp Effort & Inspection: normal respiratory effort and no use of accessory muscles Auscultation: wheezes expiratory wheezes Cardio Rate: regular rate Rhythm: regular rhythm Heart sounds: no gallops, no murmurs and no rubs Skin General skin exam: other ( warm) Extrem General: No clubbing, No cyanosis and No edema Assessment & Plan Assessment & Plan (1) Severe persistent asthma: Code(s): J45.50 - Severe persistent asthma, uncomplicated Category: Medical (2) Environmental allergies: Code(s): Z91.09 - Other allergy status, other than to drugs and biological substances Category: Medical (3) Eczema: Code(s): L30.9 - Dermatitis, unspecified Category: Medical Qualifiers: Eczema type: unspecified Qualified Code(s): L30.9 - Dermatitis, unspecified Plan Eczema significantly improved on Dupixent. Some improvement on Dupixent, though still with significant wheezing. Will continue on Dupixent for tumor injections and reassess symptoms, if fails to improve, will consider referral for bronchial thermoplasty. Continue baseline regimen of Advair, duo nebs, and albuterol MDI. Add low-dose prednisone. Medications: New prednisone 10 mg PO DAILY 30 tabs 1RF Discontinued prednisone take 4 pills daily for 5 days, then go down by 1 pill every 5 days. Discontinued Reason: Doctor's Order 10 mg PO DIRECTED 50 tabs 0RF prednisone Discontinued Reason: Doctor's Order 40 mg (2 x 20 mg) PO DAILY 10 tabs 0RF Coding Level of Care Code Est Pt Level 4 (33451) Diagnoses Severe persistent asthma J45.50 Environmental allergies Z91.09 Eczema, unspecified type L30.9 Eczema type: unspecified
== END 2023-12-22 10:29 | disposition home or self-care (01) ==
PROVIDERS: PCP Physician Assistant; Visit Provider Internal Medicine Pulmonary Disease
DX: J45.50 Severe persistent asthma, uncomplicated (principal); Z91.09 Other allergy status, other than to drugs and biological substances; L30.9 Dermatitis, unspecified
CPT/HCPCS: 99214

== ENCOUNTER → 2023-12-22 10:09 | Outpatient (BNVA) | payer OTHER, SELFPAY | PROVIDERS: PCP Physician Assistant; Visit Provider Internal Medicine Pulmonary Disease | DX: J45.50 Severe persistent asthma, uncomplicated (principal); L30.9 Dermatitis, unspecified; Z91.09 Other allergy status, other than to drugs and biological substances | CPT/HCPCS: 99212 ==

== ENCOUNTER 2024-05-18 11:51 | Outpatient (AMB) | payer OTHER, SELFPAY ==
[2024-05-18 11:56] VITALS: BP 122/77; PULSE 90; O2SAT 95; BMI 32.3
--- NOTE | 2024-05-18 11:56 | MHC.OFFVIS ---
Vital Signs 05/18/24 11:56 Height 5 ft 6 in Weight 200 lb BMI 32.3 BP 122/77 Blood Pressure Location Rt brachial Position Sitting Pulse 90 Pulse Source Doppler Pulse Oximetry (%) 95 Oxygen Delivery Method Room Air Intake Visit Reasons: To check on antonette and eczema Allergies apple [APPLE] Allergy (Severe, Verified 05/18/24 11:59) THROAT ITCHING nut - unspecified [nut] Allergy (Severe, Verified 05/18/24 11:59) ANAPHYLAXIS Fish Containing Products Allergy (Unknown, Verified 05/18/24 11:59) itchy throat HPI HPI To check on antonette and eczema: Details: 34-year-old gentleman, nonsmoker, followed for underlying moderate to severe persistent asthma and environmental allergies. After the last office visit his insurance changed and he is no longer on Dupixent and inhaled bronchodilators with suboptimal control. [facility] Medical History SONG positive Surgical History H/O surgical removal of keloid Family History Father Alive and well Mother Asthma Diabetes Brother Asthma Social History Housing: Apartment Alcohol intake: current Alcohol intake frequency: holidays/special occasions only Patient Tobacco Use Status: Never used Tobacco e-Cigarette/Vaping Use: Never Used Second Hand Smoke Exposure: No service: No Current occupational status: employed Current occupation: [employer] Cognitive needs: No Hearing needs: No Vision needs: No Review of Systems Const Denies daytime sleepiness, Denies excessive sweating, Denies fatigue, Denies fever(s), Denies lethargy, Denies malaise, Denies night sweats, Denies snoring and Denies weight loss Eyes Denies blurry vision and Denies itchy eyes ENT Denies nasal congestion, Denies post nasal drip, Denies sinus pain, Denies sinus pressure and Denies other ( Thrush) Card Denies chest pain, Denies pedal edema, Denies dyspnea, Denies orthopnea and Denies paroxysmal nocturnal dyspnea Resp Denies cough, Denies hemoptysis, Denies excessive phlegm production, Denies dyspnea, Denies snoring and Reports wheezing GI Denies abdominal pain and Denies heartburn Musc Denies myalgias, Denies arthralgias and Denies joint swelling Skin/Breast Denies rash Neuro Denies memory loss and Denies seizure-like activity Psych Denies abnormal sleep pattern, Denies anxiety and Denies memory loss Endo Denies excessive sweating, Denies fatigue and Denies heat intolerance Hardik/Lymph Denies easy bruising Aller/Immun Denies itchy eyes, Denies seasonal rhinorrhea and Reports wheezing Physical Exam Vital Signs: Last Vital Signs Pulse 90 05/18/24 11:56 BP 122/77 05/18/24 11:56 Pulse Ox 95 05/18/24 11:56 Oxygen Delivery Method Room Air 05/18/24 11:56 BMI result Body Mass Index 32.3 Const General: no acute distress and alert Nutritional Appearance: not obese Orientation/consciousness: Other orientation findings ( oriented) HEENT Head: Yes atraumatic Eyes General: appearance normal, both eyes and all related structures Sclerae: sclerae normal EOM: EOMs intact bilaterally Neck Neck: Yes supple Lymphatic: no lymphadenopathy noted Resp Effort & Inspection: normal respiratory effort and no use of accessory muscles Auscultation: clear to auscultation bilaterally Cardio Rate: regular rate Rhythm: regular rhythm Heart sounds: no gallops, no murmurs and no rubs Skin General skin exam: other ( warm) Extrem General: No clubbing, No cyanosis and No edema Assessment & Plan Assessment & Plan (1) Severe persistent asthma: Code(s): J45.50 - Severe persistent asthma, uncomplicated Category: Medical Plan: Suboptimal control off bronchodilator therapy. Restart Advair, duoneb, and Dupixent. (2) Environmental allergies: Code(s): Z91.09 - Other allergy status, other than to drugs and biological substances Category: Medical Plan: Expect to improve on Dupixent. Medications: Refilled fluticasone propion-salmeterol 230-21 mcg/actuation (Advair HFA) 2 puffs PO BID 1 ea 6RF J45.40 - Moderate persistent asthma, uncomplicated ipratropium-albuterol 0.5 mg-3 mg(2.5 mg base)/3 mL 3 mL inhalation Q4-6H PRN 270 mL 3RF wheezing albuterol sulfate 90 mcg/actuation 1 inh inhalation QID 1 ea 3RF 30 days J45.40 - Moderate persistent asthma, uncomplicated Coding Level of Care Code Est Pt Level 4 (21498) Diagnoses Severe persistent asthma J45.50 Environmental allergies Z91.09
--- OUTSIDE RECORDS SUMMARY | 2024-05-18 12:18 | XMS_ITS | Encounter Summary ---
Author Organization [facility] Address [address] [place] [address] Phone Care Team Providers Care Disability Aide Name Role Phone Lucia Kessler MD Primary Care Provider Encounter Details Date Type Department Care Team (Late st Contact Info) Description 11/19/2016 Conversion Encounter [facility] [address] [place] [address] Social History Tobacco Use Types Packs/Day Years Used Date Smoking Tobacco: Never Assessed Sex and Gender Information Value Date Recorded Sex Assigned at Not on file Legal Sex Male 4:27 PM EDT Gender Identity Not on file Sexual Orientation Not on file documented as of this encounter Plan of Treatment Not on file documented as of this encounter Visit Diagnoses Not on filedocumented in this encounter Care Teams Disability Aide Relationship Specialty Start Date End Date Lucia Kessler MD [address] [place] [address] PCP - General 11/13/16 09/14/22 documented as of this encounter
--- OUTSIDE RECORDS SUMMARY | 2024-05-18 12:18 | XMS_ITS | Continuity of Care Document ---
Author Organization [facility] Address [facility] [place] [address] Care Team Providers Care Qa Tech Name Role Phone Gabriela Phelps MD Unavailable Unavailable Procedures Procedure Date X-RAY EXAM CHEST 1 VIEW Professional Com ponent X-RAY EXAM CHEST 1 VIEW Professional Com ponent X-RAY EXAM CHEST 2 VIEWS Professional Co mponent Advance Directives Directive Yes / No Effective Date File Name No Information Encounters Encounter Description Practice Location Reason(s) For Visit Diagnoses Date Provider Providers Copied on Encounter [facility], [facility] [place], [address], Radiology Department No Information Lenin Ochoa. [address], [place], [id number] , [place]. tel: [phone] Referring Provider: Jarrod Jenkins, [address] [place], [address] . [facility], [facility] [place], [address], [place] Radiology Department No Information Lenin Ochoa. [address], [place], [id number] , [place]. tel: [phone] Referring Provider: Trey Leyva, [address], [address] . tel:[phone] [facility], [facility] [place], [address], Radiology Department No Information Сергей Gabriel . [address] [facility] [place] arciniega, [id number] , [place]. tel: [phone] Referring Provider: Merrill Ruelas [facility] [address] [facility] [place], [address]. Family History Family Member Type Diagnosis Age At Onset No Information Payers Payer name Insurance type Covered constitution party ID Authoriza tion(s) [employer] [facility] [id number] Social History Type Description Quantity Date Captured Comments Sex Male Smoking Status No Information Chief Complaint And Reason For Visit No Information Reason For Referral Reason For Referral No Information History Of Present Illness Encounter Date Complaint History Of Prese nt Illness No Information Functional Status Date Functional Assessmen t No Information Instructions Date Instruction Additional Infor mation No Information Assessments Type Assessment Date No Information Patient Care Teams Name Effective Dates (start - stop) Status Members No Information
--- OUTSIDE RECORDS SUMMARY | 2024-05-18 12:18 | XMS_ITS | Continuity of Care Document ---
Author Organization [facility] Address [address] [place] [address] Care Team Providers Care Case Fitter Name Role Phone Julia Barakat MD Unavailable Unavailable Allergies, Adverse Reactions, Alerts Substance Reaction Status Criticality Sulfa (Sulfonamide Antibiotics) Active No Information Procedures Procedure Date VISUAL ACUITY SCREEN Screening For Depresion PREV VISIT, EST, AGE 18-39 GLYCATED HEMOGLOBIN TEST ROUTINE VENIPUNCTURE COMPLETE CBC, AUTOMATED COMPREHEN METABOLIC PANEL LIPID PANEL OFFICE/OUTPATIENT VISIT, [facility] Advance Directives Directive Yes / No Effective Date File Name No Information Encounters Encounter Description Practice Location Reason(s) For Visit Diagnoses Date Provider Providers Copied on Encounter [facility], [address] [place] [address] [place], [id number], [facility] Adult No Information Roshni Dumont. [address] [facility] [place], [id number], . tel:[phone] PREV VISIT, EST, AGE 18-39 [facility], [address] [place] [address] [place] kenny, [id number], [facility] Adult preventive exam (chief complaint) Encounter for general adult medical examination without abnormal findingsEncounter for examination of eyes and vision without abnormal findingsEncounter for screening for other disorderFHx: diabetes mellitusBody mass index [BMI] 24.0-24.9, adult 1 Roshni Dumont. [address] [facility], [place], [id number], [place]. tel:[phone] OFFICE/OUTPA TIENT VISIT, [facility], [address], [place], [id number], [place] CC Adult preventive exam (chief complaint) Worried well 1 Barakatelizabeth Dumont. [address] [facility], [place], [id number], [place]. tel:[phone] Family History Family Member Type Diagnosis Age At Onset Mother Problem (finding) hypertension Mother Problem (finding) hypercholesterolemia Mother Problem (finding) Cardiovascular disease Father Problem (finding) Diabetes mellitus Immunizations Vaccine Date Status Comments Td ([facility] [place]) administered Source: Other P rovider Payers Payer name Insurance type Covered alliance party ID Authoriza tion(s) No Information Social History Type Description Quantity Date Captured Comments Alcohol Use Details Unknown Caffeine Use Details Unknown Tobacco Use Status No Information Smoking Status No Information Sex Male Sexual Orientation Straight or heterosexual Gender Identity Male Chief Complaint And Reason For Visit No Information Reason For Referral Reason For Referral No Information Plan Of Treatment Date Type Action Status Goal Influenza Vaccine. Due on due Goal Tdap. Due on due Goal HIV Screen. Due on due Goal HIV Consented. Due on due Goal Depression screening. Due on due Goal Dietary management education , guidance, and counseling completed Goal Influenza Vaccine. Due on due Goal Tdap. Due on due Goal HIV Screen. Due on due Goal HIV Consented. Due on due Goal Depression screening. Due on due History Of Present Illness Encounter Date Complaint History Of Prese nt Illness preventive exam Men's preventive visit. Patient Health Questionnaire (PHQ-2) is negative. Marital status: Single. Concern(s)/Requests Detail: HE NEEDS A DMV PE. HE HAS NO COMPLAINTES TODAY. Relevant history is negative for tobacco use, passive smoke exposure, passive vaping exposure, alcohol use. preventive exam Men's preventive visit. Marital status: Single. Concern(s)/Requests Detail: PT IS NEW PT TO [facility]. HE NEED PE FOR DMV.HE FEELS WELL AND DENIES ANY SYMPTOMS OF COVID. Relevant history is negative for Relevant history is negative for tobacco use, alcohol use. tobacco use, alcohol use. Functional Status Date Functional Assessmen t No Information Instructions Date Instruction Additional Infor rao CHECK LABS. RTC PRN OR 1 YEAR. R elated to Encounter for general adult medical examination without abnormal findings Giving encouragement to exercise Related to Body mass index (BMI) 24.0-24.9, adult Dietary management e ducation, guidance, and counseling Related to Body mass index (BMI) 24.0-24.9, adult WILL SCHEDULE PT FOR PE AND DMV COMPLETION. Related to Worried well Assessments Type Assessment Date No Information Patient Care Teams Name Effective Dates (start - stop) Status Members No Information
--- OUTSIDE RECORDS SUMMARY | 2024-05-18 12:18 | XMS_ITS | Clinical Summary ---
Author Organization [facility] Address [address] [place] [id number] Phone Care Team Providers Care Sanitation Laborer Name Role Phone Unavailable Primary Care Provider Unavailabl e Immunizations Immunization Administration Dates Next Due DTaP 5 08/10/1995, 2,1990,10/02,1990 H1N1 01/28/2009 Hep B, ped/adol 08/10/1995,02/05/1995,11/23/1994 Hib (PRP-T) 08/03/1991, 1,1990,08/02 IPV 11/03/1991,1990,1990 Influenza, injectable, trivalent 009,02/01/2008,01/25/2007,02/22 MMR 08/10/1995,08/03/1991 Meningococcal Conj (Menactra) MCV4P 01/25/2007 OPV 08/10/1995 Td (adult) (MBL), 2 Lf tetan us toxoid, PF, adsorbed 05/02/2003 Tdap 01/25/2007 Varicella 02/01/2008,08/27/1998 Family History Relation Name Status Comments Brother 1 Alive Brother: Alive and well, Alive and well, Alive and well Brother 2 Alive Brother: Alive and well, Alive and well, Alive and well Brother 3 Alive Brother: Alive and well, Alive and well, Alive and well Father Alive Father: Alive a nd well Maternal Grandmother Materna l grandmother: Diabetes mellitus, Hypertension Mother Alive Mother: Alive a nd well Sister Alive Sister: Alive a nd well Social History Tobacco Use Types Packs/Day Years Used Date Smoking Tobacco: Never Assessed Sex and Gender Information Value Date Recorded Sex Assigned at Not on file Legal Sex Male 4:27 PM EDT Gender Identity Not on file Sexual Orientation Not on file Plan of Treatment Health Maintenance Due Date Last Done Comments DTaP,Tdap,and Td Vaccines (7 - Td or Tdap) 01/25/2017 01/25/2007, 05/02/2003, 08/10/1995, Additional history exists Influenza Vaccines (#1) 2023 01/29/20, 02/01/2008, 01/25/2007, Additional history exists COVID-19 Vaccine () 12/05/2023 HIB Vaccines Completed 08/03/1991, 12/06, 1990, Additional history exists Hepatitis B Vaccines Completed 08/10/1995, 02/05/1995, 11/23/1994 IPV Vaccines Completed 08/10/1995, 10/05, 1990, Additional history exists MMR Vaccines Completed 08/10/1995, 08/03/1991 Meningococcal Vaccine Completed 01/25/2007 Varicella Vaccines Completed 02/01/2008, 08/27/1998 HPV Vaccines Aged Out No longer eligi ble based on patient's age to complete this topic Hepatitis A Vaccines Aged Out No long er eligible based on patient's age to complete this topic Men B Vaccine Aged Out No longer elig ible based on patient's age to complete this topic Pneumococcal Vaccine Aged Out No long er eligible based on patient's age to complete this topic
== END 2024-05-18 12:04 | disposition home or self-care (01) ==
PROVIDERS: PCP Physician Assistant; Visit Provider Internal Medicine Pulmonary Disease
DX: J45.50 Severe persistent asthma, uncomplicated (principal); Z91.09 Other allergy status, other than to drugs and biological substances
CPT/HCPCS: 99214

== ENCOUNTER → 2024-05-18 11:51 | Outpatient (BNVA) | payer OTHER, SELFPAY | PROVIDERS: PCP Physician Assistant; Visit Provider Internal Medicine Pulmonary Disease | DX: J45.50 Severe persistent asthma, uncomplicated (principal); Z91.09 Other allergy status, other than to drugs and biological substances | CPT/HCPCS: 99212 ==

== ENCOUNTER 2024-09-29 14:11 | Outpatient (AMB) | payer OTHER, SELFPAY ==
[2024-09-29 14:15] VITALS: BP 128/87; PULSE 99; O2SAT 95; BMI 32.4
--- NOTE | 2024-09-29 14:15 | MHC.OFFVIS ---
Vital Signs 09/29/24 14:15 Height 5 ft 6 in Weight 201 lb BMI 32.4 BP 128/87 Blood Pressure Location Rt brachial Position Sitting Pulse 99 Pulse Source Pulse Oximeter Pulse Oximetry (%) 95 Oxygen Delivery Method Room Air Intake Visit Reasons: Asthma Allergies apple (APPLE) Allergy (Severe, Verified 05/18/24 11:59) THROAT ITCHING nut - unspecified (nut) Allergy (Severe, Verified 05/18/24 11:59) ANAPHYLAXIS Fish Containing Products Allergy (Unknown, Verified 05/18/24 11:59) itchy throat HPI HPI Asthma: Details: 34-year-old gentleman, nonsmoker, followed for underlying moderate to severe persistent asthma and environmental allergies. He has been using Dupixent with excellent control of his eczematous skin symptoms, but suboptimal control of underlying asthma symptoms. He also continues on Advair, duo nebs, and albuterol MDI, though still with suboptimal asthma control. PFSH Medical History SONG positive Surgical History H/O surgical removal of keloid Family History Father Alive and well Mother Asthma Diabetes Brother Asthma Social History Housing: Apartment Alcohol intake: current Alcohol intake frequency: holidays/special occasions only Patient Tobacco Use Status: Never used Tobacco e-Cigarette/Vaping Use: Never Used Second Hand Smoke Exposure: No service: No Current occupational status: employed Current occupation: [employer] Cognitive needs: No Hearing needs: No Vision needs: No Review of Systems Const Denies daytime sleepiness, Denies excessive sweating, Denies fatigue, Denies fever(s), Denies lethargy, Denies malaise, Denies night sweats, Denies snoring and Denies weight loss Eyes Denies blurry vision and Denies itchy eyes ENT Denies nasal congestion, Denies post nasal drip, Denies sinus pain, Denies sinus pressure and Denies other ( Thrush) Card Denies chest pain, Denies pedal edema, Denies dyspnea, Reports dyspnea on exertion, Denies orthopnea and Denies paroxysmal nocturnal dyspnea Resp Denies cough, Denies hemoptysis, Denies excessive phlegm production, Denies dyspnea, Reports dyspnea on exertion, Denies snoring and Reports wheezing GI Denies abdominal pain and Denies heartburn Musc Denies myalgias, Denies arthralgias and Denies joint swelling Skin/Breast Denies rash Neuro Denies memory loss and Denies seizure-like activity Psych Denies abnormal sleep pattern, Denies anxiety and Denies memory loss Endo Denies excessive sweating, Denies fatigue and Denies heat intolerance Hardik/Lymph Denies easy bruising Aller/Immun Denies itchy eyes, Denies seasonal rhinorrhea and Reports wheezing Physical Exam Vital Signs: Last Vital Signs Pulse 99 09/29/24 14:15 BP 128/87 09/29/24 14:15 Pulse Ox 95 09/29/24 14:15 Oxygen Delivery Method Room Air 09/29/24 14:15 BMI result Body Mass Index 32.4 Const General: no acute distress and alert Nutritional Appearance: not obese Orientation/consciousness: Other orientation findings ( oriented) HEENT Head: Yes atraumatic Eyes General: appearance normal, both eyes and all related structures Sclerae: sclerae normal EOM: EOMs intact bilaterally Neck Neck: Yes supple Lymphatic: no lymphadenopathy noted Resp Effort & Inspection: normal respiratory effort and no use of accessory muscles Auscultation: wheezes (Expiratory bilateral) Cardio Rate: regular rate Rhythm: regular rhythm Heart sounds: no gallops, no murmurs and no rubs Skin General skin exam: other ( warm) Extrem General: No clubbing, No cyanosis and No edema Assessment & Plan Assessment & Plan (1) Severe persistent asthma: Code(s): J45.50 - Severe persistent asthma, uncomplicated Category: Medical Plan: Suboptimal control on Dupixent, Advair, Singulair, duo nebs, and albuterol MDI. Will request Nucala approval. (2) Eczema: Code(s): L30.9 - Dermatitis, unspecified Category: Medical Qualifiers: Eczema type: unspecified Qualified Code(s): L30.9 - Dermatitis, unspecified Plan: Well controlled on Dupixent. Continue current regimen. (3) Environmental allergies: Code(s): Z91.09 - Other allergy status, other than to drugs and biological substances Category: Medical Plan: Will request Nucala approval. Coding Level of Care Code Est Pt Level 4 (12190) Complex EM visit Add On G2211 Diagnoses Severe persistent asthma J45.50 Eczema, unspecified type L30.9 Eczema type: unspecified Environmental allergies Z91.09
--- OUTSIDE RECORDS SUMMARY | 2024-09-29 14:39 | XMS_ITS | Clinical Summary ---
Author Organization [facility] Address [address] [place] [address] Phone Care Team Providers Care Progress Worker Name Role Phone Unavailable Primary Care Provider [...]
== END 2024-09-29 14:30 | disposition home or self-care (01) ==
LOC: HO.HPS 14:12
PROVIDERS: PCP Physician Assistant; Visit Provider Internal Medicine Pulmonary Disease
DX: J45.50 Severe persistent asthma, uncomplicated (principal); L30.9 Dermatitis, unspecified; Z91.09 Other allergy status, other than to drugs and biological substances
CPT/HCPCS: 99214; G2211

== ENCOUNTER → 2024-09-29 14:11 | Outpatient (BNVA) | payer OTHER, SELFPAY | PROVIDERS: PCP Physician Assistant; Visit Provider Internal Medicine Pulmonary Disease | DX: J45.50 Severe persistent asthma, uncomplicated (principal); L30.9 Dermatitis, unspecified; Z91.09 Other allergy status, other than to drugs and biological substances | CPT/HCPCS: 99212 ==

== ENCOUNTER 2025-01-12 13:25 | Outpatient (AMB) | payer OTHER, SELFPAY ==
[2025-01-12 13:51] VITALS: BP 111/64; PULSE 106; O2SAT 95; BMI 32.8
--- NOTE | 2025-01-12 13:51 | MHC.OFFVIS ---
Vital Signs 01/12/25 13:51 Height 5 ft 6 in Weight 203 lb BMI 32.8 BP 111/64 Blood Pressure Location Rt brachial Position Sitting Pulse 106 H Pulse Source Pulse Oximeter Pulse Oximetry (%) 95 Oxygen Delivery Method Room Air Intake Visit Reasons: Asthma Allergies apple (APPLE) Allergy (Severe, Verified 01/12/25 13:56) THROAT ITCHING nut - unspecified (nut) Allergy (Severe, Verified 01/12/25 13:56) ANAPHYLAXIS Fish Containing Products Allergy (Unknown, Verified 01/12/25 13:56) itchy throat HPI HPI Asthma: Details: 34-year-old gentleman, nonsmoker, followed for underlying moderate to severe persistent asthma and environmental allergies. He has been using Dupixent with excellent control of his eczematous skin symptoms, but suboptimal control of underlying asthma symptoms. He also continues on Advair, duo nebs, and albuterol MDI, though still with suboptimal asthma control. After the last office visit he has been switched to Nucala, however he has not started on it yet and thus his asthma symptoms are not well controlled. [facility] Medical History SONG positive Surgical History H/O surgical removal of keloid Family History Father Alive and well Mother Asthma Diabetes Brother Asthma Social History (Reviewed 09/16/23 @ 09:12 by She Butterfield [facility]) Housing: Apartment Alcohol intake: current Alcohol intake frequency: holidays/special occasions only Patient Tobacco Use Status: Never used Tobacco e-Cigarette/Vaping Use: Never Used Second Hand Smoke Exposure: No service: No Current occupational status: employed Current occupation: [employer] Cognitive needs: No Hearing needs: No Vision needs: No Review of Systems Const Denies daytime sleepiness, Denies excessive sweating, Denies fatigue, Denies fever(s), Denies lethargy, Denies malaise, Denies night sweats, Denies snoring and Denies weight loss Eyes Denies blurry vision and Denies itchy eyes ENT Denies nasal congestion, Denies post nasal drip, Denies sinus pain, Denies sinus pressure and Denies other ( Thrush) Card Denies chest pain, Denies pedal edema, Denies dyspnea, Denies orthopnea and Denies paroxysmal nocturnal dyspnea Resp Denies cough, Denies hemoptysis, Denies excessive phlegm production, Denies dyspnea, Denies snoring and Reports wheezing GI Denies abdominal pain and Denies heartburn Musc Denies myalgias, Denies arthralgias and Denies joint swelling Skin/Breast Denies rash Neuro Denies memory loss and Denies seizure-like activity Psych Denies abnormal sleep pattern, Denies anxiety and Denies memory loss Endo Denies excessive sweating, Denies fatigue and Denies heat intolerance Hardik/Lymph Denies easy bruising Aller/Immun Denies itchy eyes, Denies seasonal rhinorrhea and Reports wheezing Physical Exam Vital Signs: Last Vital Signs Pulse 106 H 01/12/25 13:51 BP 111/64 01/12/25 13:51 Pulse Ox 95 01/12/25 13:51 Oxygen Delivery Method Room Air 01/12/25 13:51 BMI result Body Mass Index 32.8 Const General: no acute distress and alert Nutritional Appearance: not obese Orientation/consciousness: Other orientation findings ( oriented) HEENT Head: Yes atraumatic Eyes General: appearance normal, both eyes and all related structures Sclerae: sclerae normal EOM: EOMs intact bilaterally Neck Neck: Yes supple Lymphatic: no lymphadenopathy noted Resp Effort & Inspection: normal respiratory effort and no use of accessory muscles Auscultation: wheezes (Expiratory bilateral) Cardio Rate: regular rate Rhythm: regular rhythm Heart sounds: no gallops, no murmurs and no rubs Skin General skin exam: other ( warm) Extrem General: No clubbing, No cyanosis and No edema Assessment & Plan Assessment & Plan (1) Severe persistent asthma: Code(s): J45.50 - Severe persistent asthma, uncomplicated Category: Medical Plan: Suboptimal control as patient has not started his Nucala. Start Nucala, continue Advair, duo nebs, and albuterol MDI. Will treat acute exacerbation with a prednisone taper. (2) Environmental allergies: Code(s): Z91.09 - Other allergy status, other than to drugs and biological substances Category: Medical Plan: Expect to improve with patient starting Nucala. Coding Level of Care Code Est Pt Level 4 (33406) Diagnoses Severe persistent asthma J45.50 Environmental allergies Z91.09
== END 2025-01-12 15:41 | disposition home or self-care (01) ==
LOC: HO.HPS 13:26
PROVIDERS: PCP Physician Assistant; Visit Provider Internal Medicine Pulmonary Disease
DX: J45.50 Severe persistent asthma, uncomplicated (principal); Z91.09 Other allergy status, other than to drugs and biological substances
CPT/HCPCS: 99214

== ENCOUNTER → 2025-01-12 13:25 | Outpatient (BNVA) | payer OTHER, SELFPAY | PROVIDERS: PCP Physician Assistant; Visit Provider Internal Medicine Pulmonary Disease | DX: J45.50 Severe persistent asthma, uncomplicated (principal); Z91.09 Other allergy status, other than to drugs and biological substances | CPT/HCPCS: 99212 ==

== ENCOUNTER 2025-03-22 10:32 | Outpatient (AMB) | payer OTHER, SELFPAY ==
[2025-03-22 10:35] VITALS: BP 118/77; PULSE 81; O2SAT 95; BMI 32.3
--- NOTE | 2025-03-22 10:35 | A.OFFVIS_ITS ---
Vital Signs 03/22/25 10:35 Height 5 ft 6 in Weight 200 lb BMI 32.3 BP 118/77 Blood Pressure Location Rt brachial Position Sitting Pulse 81 Pulse Source Pulse Oximeter Pulse Oximetry (%) 95 Oxygen Delivery Method Room Air Intake Visit Reasons: Asthma Allergies apple (APPLE) Allergy (Severe, Verified 01/12/25 13:56) THROAT ITCHING nut - unspecified (nut) Allergy (Severe, Verified 01/12/25 13:56) ANAPHYLAXIS Fish Containing Products Allergy (Unknown, Verified 01/12/25 13:56) itchy throat HPI HPI Asthma: Details: 35-year-old gentleman, nonsmoker, followed for underlying severe persistent asthma and environmental allergies. Patient recently has been switched from Dupixent to no and continued on his Advair, duo nebs, Singulair, and albuterol MDI/nebs, still with suboptimal control. He continues with has been wheezing on a daily basis. [facility] Medical History SONG positive Surgical History H/O surgical removal of keloid Family History Father Alive and well Mother Asthma Diabetes Brother Asthma Social History Housing: Apartment Alcohol intake: current Alcohol intake frequency: holidays/special occasions only Patient Tobacco Use Status: Never used Tobacco e-Cigarette/Vaping Use: Never Used Second Hand Smoke Exposure: No service: No Current occupational status: employed Current occupation: [employer] Cognitive needs: No Hearing needs: No Vision needs: No Review of Systems Const Denies daytime sleepiness, Denies excessive sweating, Denies fatigue, Denies fever(s), Denies lethargy, Denies malaise, Denies night sweats, Denies snoring and Denies weight loss Eyes Denies blurry vision and Denies itchy eyes ENT Denies nasal congestion, Denies post nasal drip, Denies sinus pain, Denies sinus pressure and Denies other ( Thrush) Card Denies chest pain, Denies pedal edema, Denies dyspnea, Reports dyspnea on exertion, Denies orthopnea and Denies paroxysmal nocturnal dyspnea Resp Denies cough, Denies hemoptysis, Denies excessive phlegm production, Denies dyspnea, Reports dyspnea on exertion, Denies snoring and Reports wheezing GI Denies abdominal pain and Denies heartburn Musc Denies myalgias, Denies arthralgias and Denies joint swelling Skin/Breast Denies rash Neuro Denies memory loss and Denies seizure-like activity Psych Denies abnormal sleep pattern, Denies anxiety and Denies memory loss Endo Denies excessive sweating, Denies fatigue and Denies heat intolerance Hardik/Lymph Denies easy bruising Aller/Immun Denies itchy eyes, Denies seasonal rhinorrhea and Reports wheezing Physical Exam Vital Signs: Last Vital Signs Pulse 81 03/22/25 10:35 BP 118/77 03/22/25 10:35 Pulse Ox 95 03/22/25 10:35 Oxygen Delivery Method Room Air 03/22/25 10:35 BMI result Body Mass Index 32.3 Const General: no acute distress and alert Nutritional Appearance: not obese Orientation/consciousness: Other orientation findings ( oriented) HEENT Head: Yes atraumatic Eyes General: appearance normal, both eyes and all related structures Sclerae: sclerae normal EOM: EOMs intact bilaterally Neck Neck: Yes supple Lymphatic: no lymphadenopathy noted Resp Effort & Inspection: normal respiratory effort and no use of accessory muscles Auscultation: wheezes (Expiratory bilateral) Cardio Rate: regular rate Rhythm: regular rhythm Heart sounds: no gallops, no murmurs and no rubs Skin General skin exam: other ( warm) Extrem General: No clubbing, No cyanosis and No edema Assessment & Plan Assessment & Plan (1) Severe persistent asthma: Code(s): J45.50 - Severe persistent asthma, uncomplicated Category: Medical Plan: Still with suboptimal control despite utilizing Nucala, Advair, duo nebs, Singulair, and albuterol MDI. Will add theophylline. Will request evaluation for bronchial thermoplasty. (2) Environmental allergies: Code(s): Z91.09 - Other allergy status, other than to drugs and biological substances Category: Medical Plan: Reasonable control on Nucala and Singulair. Continue current regimen. Orders: Referrals Pulmonology Referral J45.40 - Moderate persistent asthma, uncomplicated Medications: New albuterol sulfate 90 mcg/actuation 2 inhalations inhalation Q4-6H PRN 1 ea 6RF shortness of breath or wheezing theophylline ER 450 mg PO DAILY 30 tabs 6RF Refilled prednisone Take 4 tabs daily for 5 days, then go down by 1 tab every 5 days 10 mg PO DIRECTED 50 tabs 0RF Discontinued albuterol sulfate 90 mcg/actuation (Ventolin HFA) Discontinued Reason: Doctor's Order 1 inh inhalation .4 times a day 18 ea 3RF J45.40 - Moderate persistent asthma, uncomplicated Coding Level of Care Code Est Pt Level 4 (30950) Diagnoses Severe persistent asthma J45.50 Environmental allergies Z91.09
== END 2025-03-22 10:52 | disposition home or self-care (01) ==
LOC: HO.HPS 10:32
PROVIDERS: Visit Provider Internal Medicine Pulmonary Disease
DX: J45.50 Severe persistent asthma, uncomplicated (principal); Z91.09 Other allergy status, other than to drugs and biological substances
CPT/HCPCS: 99214

== ENCOUNTER → 2025-03-22 10:32 | Outpatient (BNVA) | payer OTHER, SELFPAY | PROVIDERS: Visit Provider Internal Medicine Pulmonary Disease | DX: J45.40 Moderate persistent asthma, uncomplicated (principal); Z91.09 Other allergy status, other than to drugs and biological substances; Z79.899 Other long term (current) drug therapy | CPT/HCPCS: 99212 ==